=== PATIENT | male | born 1985 | race Caucasian/White ===

== ENCOUNTER → 2023-12-28 | Outpatient (CLI) | payer BC ==
--- NOTE | 2023-12-28 13:55 | US ---
EXAMINATION TYPE: US renal artery duplex complet DATE OF EXAM: 12/28/2023 COMPARISON: NONE CLINICAL INDICATION: Male, 38 years old with history of I10 HTN R07.9 CHEST PAIN; MEASUREMENTS: RENAL SIZE: Right Kidney: 10.9 x 4.5 x 4.5cm Left Kidney: 9.8 x 5.2 x 4.3cm Right Kidney: No hydronephrosis, nephrolithiasis or lesions seen Left Kidney: No hydronephrosis, nephrolithiasis or lesions seen Abd Aorta: No AAA visualized RESISTANCE INDEX Right: 0.6 Left: 0.6 RA/AO RATIO (< 3.5 ) Right: 1.1 Left: 1.4 RENAL ARTERY VELOCITY ( < 180 cm/s) Right: 100.3 Left: 120.4 Renal cortical echogenicity and thickness are within normal limits. No hydronephrosis or nephrolithia sis. IMPRESSION: No diagnostic evidence of renal artery stenosis.
== END | disposition home or self-care (01) ==
LOC: RADUSWWP 12:00
PROVIDERS: ATTEND Internal Medicine
DX: I10 Essential (primary) hypertension (principal); R07.9 Chest pain, unspecified
CPT/HCPCS: 93975